=== PATIENT | male | born 1995 | race Caucasian/White ===

== ENCOUNTER 2023-10-09 18:18 | Emergency (ER) | payer OTHER, SELFPAY ==
[2023-10-09 18:24] VITALS: BP 123/67; PULSE 83; TEMP 36.4; O2SAT 99; BMI 33.2
--- NOTE | 2023-10-09 18:44 | ED_ITS ---
HPI - Wound/Laceration General Chief Complaint: Wound/Laceration Stated Complaint: Laceration Time Seen by Provider: 10/09/23 18:28 Source: patient Mode of arrival: walk-in Limitations: no limitations History of Present Illness HPI narrative: 28-year-old male [id number] who presents to the ER for evaluation of laceration to the right palm. 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 1 inch laceration bleeding controlled. Patient believes his last tetanus shot was 6 to 7 years ago before college, Patient denies any numbness or tingling. States he does not do well with blood but denies any current nausea.Patient declines the need for any pain medication. Injury Just prior to arrival. Extremity Location: Right: hand Place: Reports home Patient tetanus UTD: No (6-7 years? ) Context: Reports accidental Associated symptoms: Reports pain Related Data Home Medications ?Medication ?Instructions ?Recorded ?Confirmed No Known Home Medications 10/09/23 10/09/23 Allergies Allergy/AdvReac Type Severity Reaction Status Date / Time No Known Drug Allergies Allergy Verified 10/09/23 18:23 Review of Systems ROS Constitutional Denies: fever or chills Eyes Denies: change in vision or blurry vision Ears, nose, mouth, and throat Denies: throat pain or neck pain Respiratory Denies: shortness of breath or cough Musculoskeletal Denies: back pain or neck pain Integumentary/Breast Denies: rash Neurological Denies: headache Exam Narrative Exam Narrative: Nurse's notes and vital signs reviewed. Patient is not hypoxic. General: The patient appears well and in no apparent distress. Patient is resting comfortably on cart. Skin: Warm, dry, no pallor noted., 1 inch laceration linear palmar aspect. Head: Normocephalic, atraumatic Eye: Normal conjunctiva Respiratory: Patient is in no distress Musculoskeletal: The Right hand and wrist shows no obvious deformity. + soft tissue laceration There was no swelling noted. The patient had full rom of thumb and index finger, can make OK sign and oppose thumb to all digits . pt has full thumb and index finger flexion and extension. The patient had tenderness noted only to laceration. The patient had no tenderness in the anatomical snuff box. The patient had no pain with axial loading of the thumb. Pulses are intact at brachial and radial 2+. There was no deficit at the elbow or shoulder. The patient has normal capillary refill to all distal digits. The patient has no evidence of cyanosis or mottling. The patient is able to flex and extend all digits without difficulty. Neurological: A&O x4, normal sensory, normal motor Psychiatric: Cooperative Constitutional Vital Signs, click to edit/add: Last Vital Signs Temp 97.5 F L 10/09/23 18:24 Pulse 83 10/09/23 18:24 Resp 20 10/09/23 18:24 BP 123/67 10/09/23 18:24 Pulse Ox 99 10/09/23 18:24 O2 Del Method Room Air 10/09/23 18:24 Course Vital Signs Vital signs: Vital Signs Temperature 97.5 F L 10/09/23 18:24 Pulse Rate 83 10/09/23 18:24 Respiratory Rate 20 10/09/23 18:24 Blood Pressure 123/67 10/09/23 18:24 Pulse Oximetry 99 10/09/23 18:24 Oxygen Delivery Method Room Air 10/09/23 18:24 Temperature 97.5 F L 10/09/23 18:24 Pulse Rate 83 10/09/23 18:24 Respiratory Rate 20 10/09/23 18:24 Blood Pressure 123/67 10/09/23 18:24 Pulse Oximetry 99 10/09/23 18:24 Oxygen Delivery Method Room Air 10/09/23 18:24 MDM - Wound/Laceration MDM Narrative Medical decision making narrative: Patient presents with clean laceration from a glass bowl that broke, reports 1 large piece. Patient does not do well with the site of blood but appears, no current distress. Benign exam with full range of motion and sensation. We discussed irrigation and suture repair, no use of the right hand for lifting loading or pushing for optimal skin healing. Patient's tetanus was updated as he has a small child at the bedside and reported his tetanus from being the first year of college. Imaging Data right hand xray: Attestation: I personally reviewed and interpreted this imaging study as follows: My impression: No evidence of radiopaque foreign body. 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 no white knuckle gripping Suture removal in 10 days Referrals: PERRY SANTOS [Primary Care Provider] - 10/19/23 Procedures ED Laceration Laceration Laceration 1: Additional comments: Laceration repair: Done under sterile conditions. The use of Betadine was used to prep and clean the area. Local injection with lidocaine 1% was used, approximately 5 cc. The wound was irrigated copiously with normal saline. The wound was explored there was no evidence of foreign material. The laceration was approximated with 5 -0 nylon. 7 simple interrupted sutures were placed. Patient tolerated the procedure well. The patient was neurovascularly intact post. the patient had bacitracin applied to the laceration and a dry sterile dressing was place. The patient will need to follow-up in the next 10 days for removal.
[2023-10-09] MEDS: BACITRACIN 0.9 GM PACKET 1 PACKET TOPICAL (18:48)
[2023-10-09] MEDS: LIDOCAINE HCL 1% 100 MG/10 ML MDV INJ (18:48)
[2023-10-09] MEDS: ADACEL DIPH,PERTUSS(ACELL),TET VAC/PF 0.5 ML ADULT SYRINGE IM (18:49)
--- NOTE | 2023-10-09 19:14 | XR_ITS ---
The [address] [address] Patient Name: JACE GARDINER MRN: [id number] date: 1995 Sex: M Assigned Patient Location: ER Current Patient Location: ED.MAIN Accession/Order Number: [id number] Exam Date: 10/09/2023 19:20 Report Date: 10/09/2023 19:47 At the request of: ISABELLE ABDUL Procedure: XR hand RT min 3V EXAM: XR hand RT min 3V HISTORY: The patient is a 28-year-old male, laceration r/o fb COMPARISON: None. FINDINGS: The right hand is radiographically negative with no evidence of fracture, dislocation, joint space narrowing, osteophytes, or other osseous or articular abnormalities. No radiopaque foreign bodies are seen. XR/XR hand RT min 3V IMPRESSION: Negative. Electronically authenticated by: DAVID HOWARD Date: 10/09/2023 19:47
--- NOTE | 2023-10-09 19:18 | PC.NURSE ---
Patient received laceration to right hand doing dishes. Wound cleansed and bleeding controlled.
== END 2023-10-09 19:28 | disposition home or self-care (01) ==
PROVIDERS: Emergency Provider Emergency Medicine; PCP Family Medicine
DX: S61.412A Laceration without foreign body of left hand, initial encounter (principal); W25.XXXA Contact with sharp glass, initial encounter; Z23 Encounter for immunization
CPT/HCPCS: 12001; 73130; 90471; 90715; 99283